=== PATIENT | female | born 1985 | race Caucasian/White ===

== ENCOUNTER 2017-03-07 00:17 | Emergency (ER) | payer BC ==
[~2017-03-07] VITALS: Ht 165.1 cm; Wt 65.8 kg
[2017-03-07] MEDS ORDERED: LEVO88TA43 PO (00:25)
[2017-03-07] MEDS ORDERED: NS(*) 0.9% 1000 ML BAG 1,000 ML IV ONE (00:32)
[2017-03-07] MEDS ORDERED: MORPHINE 2 MG/ML SYR IVP ONE (00:35)
[2017-03-07] MEDS ORDERED: ONDANSETRON 4 MG/2 ML VIAL IVP ONE (00:35)
[2017-03-07] MEDS ORDERED: MORPHINE 4 MG/ML SYR IVP ONE ×2 (00:35→00:45)
[2017-03-07 00:45] LABS: PLATELET COUNT, AUTOMATED 390 K/uL (150-450)
[2017-03-07] MEDS ORDERED: NS 0.9% 20 ML SDV 60 ML ONE (00:45)
[2017-03-07] MEDS ORDERED: IOPAMIDOL 76% 75 ML INFUS BTL 75 ML ONE (00:45)
[2017-03-07] MEDS ORDERED: HYDROmorphone(ER ONLY) 1 MG/ML IVP ONE (01:05)
--- NOTE | 2017-03-07 01:05 | ER Report ---
History and Physical Time Seen By MD: 00:24 Hx. of Stated Complaint: PATIENT STARTED HAVING SHARP PAIN IN HER RIGHT LOWER QUADRANT, SHE HAS NAUSEA AND VOMITING, NO DIARRHEA. HPI/ROS CHIEF COMPLAINT: Abdominal pain HISTORY OF PRESENT ILLNESS: This is a 32-year-old female. She has right lower quadrant abdominal pain. Started this evening about an hour ago. Sharp severe pain. Worsens with movement. Associated with nausea and vomiting. Normal bowel movements today. No problems with urination. No fevers or chills. She does have a history of cholecystectomy but still has a gallbladder. Last period about 2 weeks ago and was normal. Allergies: Coded Allergies: No Known Drug Allergies (Unverified , 03/07/17) Home Meds Active Scripts Ondansetron (ZOFRAN ODT) 4 Mg Tab.rapdis, 4 MG PO Q6H Y for NAUSEA/VOMITING, # 20 TAB.VALENCIA 0 Refills Prov:LATASHA SNEED MD 03/07/17 Ketorolac Tromethamine (KETOROLAC TROMETHAMINE) 10 Mg Tab, 10 MG PO Q6H Y for PAIN, #12 TAB 0 Refills Prov:LATASHA SNEED MD 03/07/17 Oxycodone Hcl/Acetaminophen (PERCOCET 5-325 MG TABLET) 1 Each Tablet, 1 EACH PO Q4H Y for PAIN, #12 TAB 0 Refills Prov:LATASHA SNEED MD 03/07/17 Tamsulosin Hcl (FLOMAX) 0.4 Mg Cap.er.24h, 0.4 MG PO QDAY, #14 CAP 0 Refills Prov:LATASHA SNEED MD 03/07/17 Reported Medications Levothyroxine Sodium (SYNTHROID) 88 Mcg Tablet, 88 MCG PO QDAY 03/07/17 Reviewed Nurses Notes: Yes Constitutional Vital Sign - Last 24 Hours 03/07/17 03/07/17 03/07/17 03/07/17 00:22 00:30 00:32 00:47 Temp 97.9 Pulse 67 70 54 Resp 24 B/P (MAP) 137/106 130/96 (107) Pulse Ox 97 98 92 03/07/17 03/07/17 03/07/17 03/07/17 01:00 01:02 01:17 01:30 Pulse 70 67 B/P (MAP) 143/102 (116) 118/77 (91) Pulse Ox 97 100 03/07/17 03/07/17 03/07/17 01:47 01:52 02:07 Pulse 86 87 85 Resp 16 B/P (MAP) 108/72 (84) Pulse Ox 100 95 91 O2 Delivery Room Air Physical Exam General Appearance: The patient is alert. No acute distress. Eyes: Pupils are equal, round. No pallor, injection or icterus. ENT: Mucous membranes are moist. Normal oral mucosa. Posterior oropharynx is normal. Respiratory: Lungs are clear to auscultation. Cardiovascular: Regular rate and rhythm. No murmurs, gallops or rubs. Normal capillary refill. Gastrointestinal: Abdomen is soft, very tender in the right lower quadrant. Associated with rebound. Nondistended. Hypoactive bowel sounds. Neurological: Alert and oriented x3. DIFFERENTIAL DIAGNOSIS: After history and physical exam, differential diagnosis was considered for abdominal pain including but not limited to appendicitis, cholecystitis, gastritis and urinary tract infection. Medical Decision Making Data Points Result Diagram: 03/07/17 0027 03/07/17 0027 Laboratory Hematology Test 03/07/17 00:27 Red Blood Count 5.36 M/uL (4.17-5.56) Mean Corpuscular Volume 86.4 fL (80.0-96.0) Mean Corpuscular Hemoglobin 29.6 pg (26.0-33.0) Mean Corpuscular Hemoglobin Concent 34.3 g/dL (32.0-36.0) Red Cell Distribution Width 13.3 % (11.5-14.5) Mean Platelet Volume 7.2 fL (7.2-11.1) Neutrophils (%) (Auto) 50.1 % (39.4-72.5) Lymphocytes (%) (Auto) 38.4 % (17.6-49.6) Monocytes (%) (Auto) 9.7 % (4.1-12.4) Eosinophils (%) (Auto) 1.4 % (0.4-6.7) Basophils (%) (Auto) 0.4 % (0.3-1.4) Nucleated RBC Relative Count (auto) 0.0 /100WBC Neutrophils # (Auto) 7.5 K/uL (2.0-7.4) Lymphocytes # (Auto) 5.7 K/uL (1.3-3.6) Monocytes # (Auto) 1.5 K/uL (0.3-1.0) Eosinophils # (Auto) 0.2 K/uL (0.0-0.5) Basophils # (Auto) 0.1 K/uL (0.0-0.1) Nucleated RBC Absolute Count (auto) 0.00 K/uL Sodium Level 139 mmol/L (137-145) Potassium Level 3.7 mmol/L (3.5-5.0) Chloride Level 103 mmol/L (98-107) Carbon Dioxide Level 23 mmol/L (22-31) Blood Urea Nitrogen 12 mg/dl (7-18) Creatinine 0.80 mg/dl (0.52-1.04) Glomerular Filtration Rate Calc > 60.0 Random Glucose 102 mg/dl (75-110) Lactate 3.1 mmol/L (0.7-2.1) Calcium Level 9.3 mg/dl (8.4-10.2) Total Bilirubin 0.3 mg/dl (0.2-1.3) Aspartate Amino Transf (AST/SGOT) 20 U/L (0-35) Alanine Aminotransferase (ALT/SGPT) 27 U/L (0-56) Alkaline Phosphatase 77 U/L (0-126) Total Protein 7.7 gm/dl (6.3-8.2) Albumin 4.4 g/dl (3.5-5.0) Amylase Level 109 U/L (0-110) Lipase 103 U/L (23-300) Human Chorionic Gonadotropin, Qual Negative (NEGATIVE) Chemistry Test 03/07/17 00:27 White Blood Count 14.9 k/uL (4.5-11.0) Red Blood Count 5.36 M/uL (4.17-5.56) Hemoglobin 15.9 g/dL (12.0-16.0) Hematocrit 46.3 % (34.0-47.0) Mean Corpuscular Volume 86.4 fL (80.0-96.0) Mean Corpuscular Hemoglobin 29.6 pg (26.0-33.0) Mean Corpuscular Hemoglobin Concent 34.3 g/dL (32.0-36.0) Red Cell Distribution Width 13.3 % (11.5-14.5) Platelet Count 390 K/uL (150-450) Mean Platelet Volume 7.2 fL (7.2-11.1) Neutrophils (%) (Auto) 50.1 % (39.4-72.5) Lymphocytes (%) (Auto) 38.4 % (17.6-49.6) Monocytes (%) (Auto) 9.7 % (4.1-12.4) Eosinophils (%) (Auto) 1.4 % (0.4-6.7) Basophils (%) (Auto) 0.4 % (0.3-1.4) Nucleated RBC Relative Count (auto) 0.0 /100WBC Neutrophils # (Auto) 7.5 K/uL (2.0-7.4) Lymphocytes # (Auto) 5.7 K/uL (1.3-3.6) Monocytes # (Auto) 1.5 K/uL (0.3-1.0) Eosinophils # (Auto) 0.2 K/uL (0.0-0.5) Basophils # (Auto) 0.1 K/uL (0.0-0.1) Nucleated RBC Absolute Count (auto) 0.00 K/uL Glomerular Filtration Rate Calc > 60.0 Lactate 3.1 mmol/L (0.7-2.1) Calcium Level 9.3 mg/dl (8.4-10.2) Total Bilirubin 0.3 mg/dl (0.2-1.3) Aspartate Amino Transf (AST/SGOT) 20 U/L (0-35) Alanine Aminotransferase (ALT/SGPT) 27 U/L (0-56) Alkaline Phosphatase 77 U/L (0-126) Total Protein 7.7 gm/dl (6.3-8.2) Albumin 4.4 g/dl (3.5-5.0) Amylase Level 109 U/L (0-110) Lipase 103 U/L (23-300) Human Chorionic Gonadotropin, Qual Negative (NEGATIVE) EKG/Imaging Imaging COMPUTED TOMOGRAPHY ABDOMEN AND PELVIS WITH INTRAVENOUS CONTRAST DATE OF EXAM: 03/07/2017 12:32 AM INDICATION: Right lower quadrant pain. COMPARISON: None. TECHNIQUE: Contrast enhanced abdomen and pelvis CT performed during the injection of 75 ml of Isovue 370. Sagittal and coronal reconstructions were performed. One of the following dose optimization techniques was utilized in the performance of this exam: Automated exposure control; adjustment of the mA and/or kV according to the patient's size; or use of an iterative reconstruction technique. Specific details can be referenced in the facility's radiology CT exam operational policy. FINDINGS: Lung bases: 4 mm subpleural nodule in the left lower lobe on image 12 series 2. Liver and hepatic vasculature: Subcentimeter hypoattenuating lesion in the inferior margin of the liver on image 69 series 2 likely represents a cyst or hemangioma. No acute abnormality or suspicious lesion. Gallbladder and bile ducts: Cholecystectomy. Spleen: Normal. Pancreas: Normal. Adrenals: Normal. Kidneys, ureters and bladder: There is a 3 mm calculus in the proximal 3rd of the right ureter with associated mild hydronephrosis and delayed nephrogram. Otherwise unremarkable. Retroperitoneum and aorta: Normal aorta, no adenopathy. GI tract, mesentery and peritoneum: No acute abnormality. Normal appendix. Uterus and adnexa: Multiple nabothian cysts. Collapsing follicle in the right ovary. Small volume of free fluid in the pelvic cul-de-sac is within physiologic limits. Probable cholecystectomy clip adjacent to the right ovary. Bones and soft tissues: No acute abnormality or suspicious lesion. IMPRESSION: 1. 3 mm calculus in the proximal 3rd of the right ureter with associated mild hydronephrosis and delayed nephrogram. 2. 4 mm left lower lobe pulmonary nodule. Current Fleischner Society recommendations for pulmonary nodules in patients less than 35 years of age: Primary lung cancer is rare in persons under 35 years of age (<1% of all cases) , and the risks from radiation exposure are greater in younger than in older populations. Management decisions should be made on a case by case basis, and the physician should recognize that infectious causes are more likely than cancer, and that the use of serial CT should be minimized. For larger solid nodules that are clearly visualized and are considered low risk, follow-up with radiography rather than CT may be appropriate to take advantage of the lower cost and lower radiation exposure. Natty H, Dakota D, Jhoano J, et al. Guidelines for management of small pulmonary nodules detected on CT images: from the Fleischner society 2017. Report Dictated By: Roger Villalpando MD at 03/07/2017 1:17 AM ED Course/Re-evaluation Clinical Indication for ER IV: Hydration, IV Access ED Course Initially given Morphine 4mg IV and Zofran 4mg IV. Minimal improvement. Gave a liter of normal saline. CT scan obtained. Dilaudid 1mg IV was given with good relief of pain. CT shows kidney stone, 4mm size, with hydronephrosis, about 1[address] through the ureter. Gave Toradol 30mg IV and Flomax 0.4mg PO. Will go home with Percocet 5/325, Toradol 10mg, Zofran 4mg ODT, and Flomax 0.4mg. Decision to Disposition Date: Mar 07, 2017 Decision to Disposition Time: 01:42 Depart Departure Latest Vital Signs Vital Signs Date Time Temp Pulse Resp B/P (MAP) Pulse Ox O2 Delivery O2 Flow Rate FiO2 03/07/17 02:07 85 16 108/72 (84) 91 Room Air 03/07/17 00:22 97.9 Impression: Primary Impression: Kidney stone on right side Condition: Improved Disposition: HOME OR SELF-CARE New Scripts Ondansetron (ZOFRAN ODT) 4 Mg Tab.rapdis 4 MG PO Q6H Y for NAUSEA/VOMITING, #20 TAB.VALENCIA 0 Refills Prov: LATASHA SNEED MD 03/07/17 Ketorolac Tromethamine (KETOROLAC TROMETHAMINE) 10 Mg Tab 10 MG PO Q6H Y for PAIN, #12 TAB 0 Refills Prov: LATASHA SNEED MD 03/07/17 Oxycodone Hcl/Acetaminophen (PERCOCET 5-325 MG TABLET) 1 Each Tablet 1 EACH PO Q4H Y for PAIN, #12 TAB 0 Refills Prov: LATASHA SNEED MD 03/07/17 Tamsulosin Hcl (FLOMAX) 0.4 Mg Cap.er.24h 0.4 MG PO QDAY, #14 CAP 0 Refills Prov: LATASHA SNEED MD 03/07/17 Patient Instructions: Kidney Stones (ED) Additional Instructions: Rest and increase fluid intake. For pain you can use: Percocet 5/325, take 1-2 every 4 hours as needed for pain. Toradol 10mg, one every 6 hours as needed for pain. For Nausea: Zofran 4mg, one every 4-6 hours as needed for nausea. To help the stone to pass and to help decrease swelling and pain in the urinary system after the stone passes, we recommend using Flomax 0.4mg one daily for the next couple of weeks. LATASHA SNEED MD Mar 07, 2017 01:05
--- NOTE | 2017-03-07 01:29 | RADIOLOGY IMAGING REPORT ---
FACILITY: [facility] - [place] PATIENT NAME: Chelsea Bearden : 1985 MR: [id number] V: [id number] EXAM DATE: ORDERING PHYSICIAN: LATASHA SNEED TECHNOLOGIST: Location: [facility] - [place], [place] Patient: Chelsea Bearden : 1985 Visit/Account:[id number] Date of Sevice: 03/07/2017 COMPUTED TOMOGRAPHY ABDOMEN AND PELVIS WITH INTRAVENOUS CONTRAST DATE OF EXAM: 03/07/2017 12:32 AM INDICATION: Right lower quadrant pain. COMPARISON: None. TECHNIQUE: Contrast enhanced abdomen and pelvis CT performed during the injection of 75 ml of Isovue 370. Sagittal and coronal reconstructions were performed. One of the following dose optimization te chniques was utilized in the performance of this exam: Automated exposure control; adjustment of the mA and/or kV according to the patient's size; or use of an iterative reconstruction technique. Spec [facility] details can be referenced in the facility's radiology CT exam operational policy. FINDINGS: Lung bases: 4 mm subpleural nodule in the left lower lobe on image 12 series 2. Liver and hepatic vasculature: Subcentimeter hypoattenuating lesion in the inferior margin of the li delicia on image 69 series 2 likely represents a cyst or hemangioma. No acute abnormality or suspicious lesion. Gallbladder and bile ducts: Cholecystectomy. Spleen: Normal. Pancreas: Normal. Adrenals: Normal. Kidneys, ureters and bladder: There is a 3 mm calculus in the proximal 3rd of the right ureter with associated mild hydronephrosis and delayed nephrogram. Otherwise unremarkable. Retroperitoneum and aorta: Normal aorta, no adenopathy. GI tract, mesentery and peritoneum: No acute abnormality. Normal appendix. Uterus and adnexa: Multiple nabothian cysts. Collapsing follicle in the right ovary. Small volume o f free fluid in the pelvic cul-de-sac is within physiologic limits. Probable cholecystectomy clip ad jacent to the right ovary. Bones and soft tissues: No acute abnormality or suspicious lesion. IMPRESSION: 1. 3 mm calculus in the proximal 3rd of the right ureter with associated mild hydronephrosis and del ayed nephrogram. 2. 4 mm left lower lobe pulmonary nodule. Current Fleischner Society recommendations for pulmonary n odules in patients less than 35 years of age: Primary lung cancer is rare in persons under 35 years o f age (<1% of all cases), and the risks from radiation exposure are greater in younger than in older populations. Management decisions should be made on a case by case basis, and the physician should recognize that infectious causes are more likely than cancer, and that the use of serial CT should be minimized. For larger solid nodules that are clearly visualized and are considered low risk, follow-up with radiogr aphy rather than CT may be appropriate to take advantage of the lower cost and lower radiation exposu re. Natty H, Dakota D, Simin J, et al. Guidelines for management of small pulmonary nodules detected on CT images: from the Fleischner society 2017. Report Dictated By: Roger Villalpando MD at 03/07/2017 1:17 AM Report E-Signed By: Roger Villalpando MD at 03/07/2017 1:24 AM [id number]
[2017-03-07] MEDS ORDERED: TAMSULOSIN HCL 0.4 MG CAP PO ONE (01:40)
[2017-03-07] MEDS ORDERED: KETOROLAC 30 MG/ML VIAL IVP ONE (01:40)
[2017-03-07] MEDS ORDERED: KETOROLAC TROM 10 MG TAB TH PO ONE (01:45)
[2017-03-07] MEDS ORDERED: ONDANSETRON 4 MG ODT TH SL ONE (01:45)
[2017-03-07] MEDS ORDERED: oxyCODONE/ACETAMIN 5/325MG TH 2 TAB/BOTTLE PO ONE (01:45)
[2017-03-07] MEDS ORDERED: ONDA4TAB PO (02:03)
[2017-03-07] MEDS ORDERED: OXYC-865 PO (02:03)
[2017-03-07] MEDS ORDERED: KET10 PO (02:03)
[2017-03-07] MEDS ORDERED: TAMS0.4C25 PO (02:03)
[2017-03-07 02:07] VITALS: BP 108/72
== END 2017-03-07 02:13 | disposition home or self-care (01) ==
LOC: ER 01:43
DX: N20.0 Calculus of kidney (principal)
CPT/HCPCS: 74177; 82150; 83605; 83690; 84703; 85025; 96361; 96374; 96375; 99284; J1170; J1885; J2270; J2405; J7030; J7050; Q9967; S0119; 82040; 82247; 82310; 82374; 82435; 82565; 82947; 84075; 84132; 84155; 84295; 84450; 84460; 84520